=== PATIENT | male | born 1935 | race Caucasian/White ===

== ENCOUNTER → 2018-04-12 | Outpatient (CLI) | payer BC | LOC: FIMAGING 18:31 | PROVIDERS: ATTEND Family Medicine | DX: R41.3 Other amnesia (principal); R26.9 Unspecified abnormalities of gait and mobility; F32.89 Other specified depressive episodes ==

== ENCOUNTER → 2018-07-25 | Outpatient (CLI) | payer BC | LOC: FIMAGING 18:43 | PROVIDERS: ATTEND Family Medicine | DX: M48.061 Spinal stenosis, lumbar region without neurogenic claudication (principal); M51.36 Other intervertebral disc degeneration, lumbar region ==